=== PATIENT | male | born 1990 | race Caucasian/White ===

== ENCOUNTER 2023-01-24 14:11 | Emergency (ER) | payer OTHER ==
[~2023-01-24] VITALS: Ht 185.4 cm; Wt 77.1 kg
== END 2023-01-24 17:59 | disposition home or self-care (01) ==
LOC: ER 14:11
DX: S00.262A Insect bite (nonvenomous) of left eyelid and periocular area, initial encounter (principal); W57.XXXA Bitten or stung by nonvenomous insect and other nonvenomous arthropods, initial encounter; Y93.9 Activity, unspecified; Y92.89 Other specified places as the place of occurrence of the external cause; Y99.9 Unspecified external cause status; H02.844 Edema of left upper eyelid